=== PATIENT | male | born 1995 | race African-American/Black ===

== ENCOUNTER 2021-01-01 08:17 | Emergency (ER) | payer OTHER ==
[2021-01-01 14:22] LABS: SARS-CoV-2 PCR by NAA Not Detected (NotDetected)
== END 2021-01-01 16:02 | disposition home or self-care (01) ==
LOC: ERS 08:17
DX: M79.10 Myalgia, unspecified site (principal); Z20.822 Contact with and (suspected) exposure to COVID-19; J45.909 Unspecified asthma, uncomplicated
CPT/HCPCS: 99284; U0003; U0005